=== PATIENT | female | born 1985 | race African-American/Black ===

== ENCOUNTER 2017-06-02 09:42 | Emergency (ER) | payer MEDICAID ==
[~2017-06-02] VITALS: Ht 160 cm; Wt 82.0 kg
[2017-06-02 09:44] VITALS: BP 121/74; PULSE 78; RESP 14; TEMP 98.3; O2SAT 98
--- NOTE | 2017-06-02 12:07 | PD ---
HPI . Headache Chief Complaint: Abnormal Results Time Seen by Provider: 12:03 Travel History International Travel<30 days: No Contact w/Intl Traveler<30days: No Traveled to known affect area: No History of Present Illness HPI This patient presents with a chief complaint of headache. Onset was a week ago. It is associated with nausea and double vision. She initially rated her pain 10/10. No modifiers. Getting progressively worse. PFSH Past Medical History Asthma: Yes Blood Disorders: No Anxiety: Yes (ANXIETY ATTACKS) Cancer: No Cardiovascular Problems: Yes High Cholesterol: Yes Diabetes: Yes Patient Takes Glucophage: Yes Diminished Hearing: No Endocrine: Yes (GESTATIONAL DIABETES) Genitourinary: No Headaches: Yes Immune Disorder: No Musculoskeletal: No Neurologic: Yes Psychiatric: Yes Reproductive: No Respiratory: Yes Immunizations Current: No ?: Not LMP: 05/19/17 : 5 Para: 4 Miscarriage: 1 : 0 Ovarian Cysts: Yes Tubal Ligation: Yes Past Surgical History Section: Yes (X 4) Gynecologic Surgery: Yes (C SECTIONS X4) Other Surgery: Yes (TUBAL) Social History Alcohol Use: No (OCCASIONALLY) Tobacco Use: No Substance Use: No Allergies-Medications (Allergen,Severity, Reaction): Coded Allergies: dinoprostone (Unverified Allergy, Severe, SHORT OF BREATH, 03/11/17) metoclopramide (Unverified Allergy, Severe, JITTERY, 03/11/17) penicillin G (Unverified Allergy, Severe, ITCHING, N/V, 03/11/17) oxycodone (Unverified Allergy, Unknown, rash, 03/11/17) promethazine (Unverified Allergy, Unknown, NAUSEA, 03/11/17) Uncoded Allergies: ENVIRONMENTAL (Allergy, Severe, 02/16/09) Reported Meds & Prescriptions Reported Meds & Active Scripts Active No Active Prescriptions or Reported Medications Review of Systems Except as stated in HPI: all other systems reviewed are Neg General / Constitutional: No: Fever, Chills Eyes: Positive: Diploplia HENT: Positive: Headaches Gastrointestinal: Positive: Nausea, Abdominal Pain (this is been chronic) Physical Exam Narrative GENERAL: Awake and alert. SKIN: Warm and dry with no rash or lesions. HEAD: Bitemporal tenderness. No occipital tenderness. EYES: Pupils are equal. Extraocular movements are intact. ENT: Mucous membranes are moist. NECK: Supple. RESPIRATORY: Nonlabored respirations. MUSCULOSKELETAL: Atraumatic. NEUROLOGICAL: A and O 3. No obvious cranial nerve deficits. Normal finger- nose-finger exam. 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 PSYCHIATRIC: Appropriate mood and affect. Data Data Last Documented VS Vital Signs Date Time Temp Pulse Resp B/P (MAP) Pulse Ox O2 Delivery O2 Flow Rate FiO2 06/02/17 11:27 16 Room Air 06/02/17 09:44 98.3 78 121/74 (90) [address] Brain W/O Iv Contrast(Rout) (06/02/17 12:03) Iv Access Insert/Monitor (06/02/17 12:03) Sodium Chloride 0.9% Flush (Ns Flush) (06/02/17 12:15) Diphenhydramine Inj (Benadryl Inj) (06/02/17 12:15) Haloperidol Inj (Haldol Inj) (06/02/17 12:15) MDM Medical Decision Making Medical Screen Exam Complete: Yes Emergency Medical Condition: Yes Differential Diagnosis Differential diagnosis of headache includes but is not limited to migraine, muscle contraction headache, brain tumor, brain bleed Narrative Course This patient presents with chief complaint of headache associated with diplopia and nausea. Her physical exam is unremarkable. She reports an adverse reaction to Phenergan. I will treat her headache with IM Haldol and IV Benadryl. CT of her head is pending. Last Impressions Head CT 06/02/17 1203 Signed Impressions: Service Date/Time: Friday, June 02, 2017 12:33 - CONCLUSION: Normal examination for a patient of this age. John Bain MD The history, exam, diagnostic testing, and current condition do not suggest any significant pathology to warrant further testing, continued ED treatment, admission, or surgical evaluation at this point. No EMC was found. The patient 's condition is stable and appropriate for discharge. Diagnosis Primary Impression: Headache Qualified Codes: G44.209 - Tension-type headache, unspecified, not intractable Patient Instructions: Acute Headache (DC), General Instructions Additional Instructions: Follow-up with your physician for ongoing symptoms. Med/Other Pt SpecificInfo: Prescription(s) given Scripts Upxzmlrhpf-Qnhubjocqojjr-Oterqdxj (Fioricet) 50-300-40 Mg Cap 1 CAP PO Q4H Y for HEADACHE, #12 CAP 0 Refills Prov: Latisha Harrison MD 06/02/17 Disposition: 01 DISCHARGE HOME Condition: Stable Latisha Harrison MD Jun 02, 2017 12:07
[2017-06-02] MEDS ORDERED: diphenhydrAMINE HCL 50 MG/ML VIAL IVP ONE (12:15)
[2017-06-02] MEDS ORDERED: HALOPERIDOL LACTATE 5 MG/ML AMP IM ONE (12:15)
[2017-06-02] MEDS ORDERED: SODIUM CHLORIDE 0.9% FLUSH 10 ML FLUSH IVF PRN (12:15)
--- NOTE | 2017-06-02 12:53 | RADRPT ---
EXAM DATE/TIME: 06/02/2017 12:33 [facility] COMPARISON: No previous studies available for comparison. INDICATIONS : Head pain with diziness. RADIATION DOSE: 44.09 CTDIvol (mGy) MEDICAL HISTORY : Diabetes,asthma SURGICAL HISTORY : Tubal ligation. section. ENCOUNTER: Initial ACUITY: 1 week PAIN SCALE: 10/10 LOCATION: cranial TECHNIQUE: Multiple contiguous axial images were obtained of the head. Using automated exposure control and adj ustment of the mA and/or kV according to patient size, radiation dose was kept as low as reasonably a chievable to obtain optimal diagnostic quality images. DICOM format image data is available electro nically for review and comparison. FINDINGS: CEREBRUM: The ventricles are normal for age. No evidence of midline shift, mass lesion, hemorrhage or acute in farction. No extra-axial fluid collections are seen. POSTERIOR FOSSA: The cerebellum and brainstem are intact. The 4th ventricle is midline. The cerebellopontine angle i s unremarkable. EXTRACRANIAL: The visualized portion of the orbits is intact. SKULL: The calvaria is intact. No evidence of skull fracture. CONCLUSION: Normal examination for a patient of this age. John Bain MD on June 02, 2017 at 12:51 Board Certified Radiologist. This report was verified electronically.
[2017-06-02] MEDS ORDERED: BUTA1CAP PO (13:14)
[2017-06-03] MEDS ORDERED: PRED20 PO (15:43)
== END 2017-06-02 14:07 | disposition home or self-care (01) ==
LOC: NEPD 09:42
DX: G44.209 Tension-type headache, unspecified, not intractable (principal)
CPT/HCPCS: 70450; 96372; 96374; 99285; J1200; J1630

== ENCOUNTER 2017-06-03 13:46 | Emergency (ER) | payer OTHER, MEDICAID ==
[~2017-06-03] VITALS: Ht 162.6 cm; Wt 82.0 kg
[~2017-06-03 13:46] MED LIST: BUTA1CAP PO
[2017-06-03 13:49] VITALS: BP 147/96; PULSE 90; RESP 22; TEMP 98.9; O2SAT 99
[2017-06-03 14:20] VITALS: BP 147/96; PULSE 77; RESP 18; O2SAT 98
[2017-06-03] MEDS ORDERED: SODIUM CHLOR 0.9% 1000 ML INJ 1,000 ML IV SCH (14:23)
--- NOTE | 2017-06-03 14:27 | PD ---
HPI Chief Complaint: Allergic/Adverse Reaction Time Seen by Provider: 14:15 Travel History International Travel<30 days: No Contact w/Intl Traveler<30days: No Traveled to known affect area: No History of Present Illness HPI This is a 32-year-old female who presents for evaluation. She reports that 2 hours ago she was driving when she felt the sensation that her tongue and throat were swelling. Symptoms are moderate, aggravated by swallowing or talking. She denies any swelling of the lips, she denies any rash. She reports that she did not eat anything unusual today and she has not been using any unusual medications or other substances. She was seen here yesterday for evaluation of a headache and at that time she received injections of Haldol and Benadryl. She has no other complaints at this time. PFSH Past Medical History Asthma: Yes Blood Disorders: No Anxiety: Yes (ANXIETY ATTACKS) Cancer: No Cardiovascular Problems: Yes High Cholesterol: Yes Diabetes: Yes Diminished Hearing: No Endocrine: Yes (GESTATIONAL DIABETES) Genitourinary: No Headaches: Yes Immune Disorder: No Musculoskeletal: No Neurologic: Yes Psychiatric: Yes Reproductive: No Respiratory: Yes Immunizations Current: No : 5 Para: 4 Miscarriage: 1 : 0 Ovarian Cysts: Yes Tubal Ligation: Yes Past Surgical History Section: Yes (X 4) Gynecologic Surgery: Yes (C SECTIONS X4) Other Surgery: Yes (TUBAL) Social History Alcohol Use: No (OCCASIONALLY) Tobacco Use: No Substance Use: No Allergies-Medications (Allergen,Severity, Reaction): Coded Allergies: dinoprostone (Unverified Allergy, Severe, SHORT OF BREATH, 03/11/17) metoclopramide (Unverified Allergy, Severe, JITTERY, 03/11/17) penicillin G (Unverified Allergy, Severe, ITCHING, N/V, 03/11/17) oxycodone (Unverified Allergy, Unknown, rash, 03/11/17) promethazine (Unverified Allergy, Unknown, NAUSEA, 03/11/17) Uncoded Allergies: ENVIRONMENTAL (Allergy, Severe, 02/16/09) Reported Meds & Prescriptions Reported Meds & Active Scripts Active Prednisone 20 Mg Tab 20 Mg PO BID 5 Days Fioricet (Ijknafvrkj-Fdmpqqiulzjbd-Ckqfjuem) 50-300-40 Mg Cap 1 Cap PO Q4H PRN Review of Systems Except as stated in HPI: all other systems reviewed are Neg Physical Exam Narrative GENERAL: Well-developed well-nourished female who appears anxious on initial examination. SKIN: Warm and dry. HEAD: Atraumatic. Normocephalic. EYES: Pupils equal and round. No scleral icterus. No injection or drainage. ENT: No nasal bleeding or discharge. Mucous membranes pink and moist. There is no obvious objective swelling of the lips, tongue, uvula. There is no stridor or drooling. Voice is not hoarse or muffled. NECK: Trachea midline. No JVD. CARDIOVASCULAR: Regular rate and rhythm. No murmur appreciated. RESPIRATORY: No accessory muscle use. Clear to auscultation. Breath sounds equal bilaterally. GASTROINTESTINAL: Abdomen soft, non-tender, nondistended. Hepatic and splenic margins not palpable. MUSCULOSKELETAL: No obvious deformities. No clubbing. No cyanosis. No edema. NEUROLOGICAL: Awake and alert. No obvious cranial nerve deficits. Motor grossly within normal limits. Normal speech. PSYCHIATRIC: Appropriate mood and affect; insight and judgment normal. Data Data Last Documented VS Vital Signs Date Time Temp Pulse Resp B/P (MAP) Pulse Ox O2 Delivery O2 Flow Rate FiO2 06/03/17 13:49 98.9 90 22 147/96 (113) 99 Room Air Orders Orders Ecg Monitoring (06/03/17 14:23) Iv Access Insert/Monitor (06/03/17 14:23) Oximetry (06/03/17 14:23) Diphenhydramine Inj (Benadryl Inj) (06/03/17 14:30) Methylprednisolone So Succ Inj (Solumedr (06/03/17 14:30) Famotidine Inj (Pepcid Inj) (06/03/17 14:30) Sodium Chlor 0.9% 1000 Ml Inj (Ns 1000 M (06/03/17 14:23) Sodium Chloride 0.9% Flush (Ns Flush) (06/03/17 14:30) Ed Discharge Order (06/03/17 15:43) MDM Medical Decision Making Medical Screen Exam Complete: Yes Emergency Medical Condition: Yes Medical Record Reviewed: Yes Differential Diagnosis Acute allergic reaction, angioedema, uvulitis, pharyngitis, abscess, anaphylaxis Narrative Course 32-year-old female presents with a sensation of tongue and throat swelling which started 2 hours ago. Objectively there is no obvious angioedema on initial examination and there is no evidence of airway compromise. The patient will be placed on ECG monitoring pulse oximetry. She will be given IV Solu- Medrol, H1 and H2 antihistamines. She will be monitored closely for any progression of her symptoms. 1545: The patient was reexamined and she feels all of her symptoms have resolved. The patient will be discharged with a short course of prednisone, recommended [id number] Benadryl use and return for any acutely new or worsening symptoms. She is agreeable with this plan. Diagnosis Primary Impression: Allergic reaction Qualified Codes: T78.40XA - Allergy, unspecified, initial encounter Additional Instructions: Medication as prescribed. Benadryl every 6 hours as needed. Return for any emergent medical conditions. Med/Other Pt SpecificInfo: Prescription(s) given Scripts Prednisone (Prednisone) 20 Mg Tab 20 MG PO BID for 5 Days, #10 TAB 0 Refills Prov: Eleazar Saldana MD 06/03/17 Disposition: 01 DISCHARGE HOME Condition: Stable Yves Salazar Jun 03, 2017 14:27
[2017-06-03] MEDS ORDERED: diphenhydrAMINE HCL 50 MG/ML VIAL IVP ONE (14:30)
[2017-06-03] MEDS ORDERED: methylPREDNISolone SOD SUCC 125 MG/2 ML VIAL IV PUSH ONE (14:30)
[2017-06-03] MEDS ORDERED: FAMOTIDINE 20 MG/2 ML VIAL IV PUSH ONE (14:30)
[2017-06-03] MEDS ORDERED: SODIUM CHLORIDE 0.9% FLUSH 10 ML FLUSH IV FLUSH PRN (14:30)
[2017-06-03] MEDS ORDERED: PRED20 PO (15:43)
[2017-06-03 16:00] VITALS: BP 117/62; PULSE 73; RESP 18; O2SAT 99
[2017-06-03 16:29] VITALS: BP 117/62
== END 2017-06-03 16:30 | disposition home or self-care (01) ==
LOC: NEPD 13:46
DX: T78.40XA Allergy, unspecified, initial encounter (principal); R51 Headache; J45.909 Unspecified asthma, uncomplicated; F41.9 Anxiety disorder, unspecified; E78.00 Pure hypercholesterolemia, unspecified; E11.9 Type 2 diabetes mellitus without complications; Z88.0 Allergy status to penicillin; Z88.5 Allergy status to narcotic agent; Z88.8 Allergy status to other drugs, medicaments and biological substances
CPT/HCPCS: 96361; 96374; 96375; 99284; J1200; J2930; J7030

== ENCOUNTER 2017-07-18 07:17 | Day surgery (SDC) | payer OTHER, MEDICAID ==
[~2017-07-18] VITALS: Ht 160 cm; Wt 80.0 kg
[~2017-07-18 07:17] MED LIST changes: +PRED20 PO
[2017-07-18 07:38] VITALS: BP 135/82; PULSE 79; RESP 20; TEMP 98.4; O2SAT 96
[2017-07-18] MEDS ORDERED: SODIUM CHLOR 0.9% 1000 ML INJ 1,000 ML IV SCH (08:00)
[2017-07-18] MEDS ORDERED: LORazepam 2 MG/ML VIAL ONE (08:01)
[2017-07-18] MEDS ORDERED: LORazepam 2 MG/ML VIAL IV ONE (08:15)
[2017-07-18 08:38] LABS: BICARBONATE 23.7 MEQ/L (21.0-32.0); POTASSIUM 3.9 MEQ/L (3.5-5.1)
[2017-07-18 09:20] VITALS: BP 125/64; PULSE 70; RESP 18; TEMP 98.1; O2SAT 97
--- NOTE | 2017-07-18 09:23 | PD.RAD ---
Post Procedure Progress Note Pre Procedure Diagnosis: (1) Pseudotumor cerebri syndrome Post Procedure Diagnosis: (1) Pseudotumor cerebri syndrome (2) Pseudotumor cerebri Procedure Date: Jul 18, 2017 Supervising Radiologist: Rolando Fuentes Proceduralist/Assist: Julia Jackson, RT(R)(), Tawnya Floyd RT(R) Anesthesia: Local Plan of Activity Patient to Unit: ROPU Patient Condition: Good See PACS Report for procedural detail/treatment Spinal Procedure Lumbar Puncture L3-L4 Fluid Removal (CCs): 21 Fluid Description: Clear Puncture Time: 09:07 Findings: OP: 32 cmH2O CP: 9 cm H2O Rolando Fuentes MD Jul 18, 2017 09:23
[2017-07-18 09:30] VITALS: BP 130/72; PULSE 82; RESP 20; TEMP 98.6; O2SAT 98
[2017-07-18 10:46] LABS: GROSS BLOOD TUBE #1 TRACE (0); GROSS BLOOD TUBE #2 0 (0); SUPERNATE COLOR TUBE #1 CLEAR (CLEAR); SUPERNATE COLOR TUBE #2 CLEAR (CLEAR); SUPERNATE COLOR TUBE #3 CLEAR (CLEAR); VOLUME TUBE # 1 5.5 ML
[2017-07-18 10:47] LABS: CSF LYMPHOCYTES 100 %; CSF NEUTROPHILS 0 %; GROSS BLOOD TUBE #3 0 (0); VOLUME TUBE # 4 5.5 ML; WBC TUBE #4 8 /MM3 (0-10)
[2017-07-18 10:48] LABS: GROSS BLOOD TUBE #4 0 (0); SUPERNATE COLOR TUBE #4 CLEAR (CLEAR)
[2017-07-18 11:00] VITALS: BP 131/68; PULSE 79; RESP 20; O2SAT 98
--- NOTE | 2017-07-18 13:23 | RADRPT ---
EXAM DATE/TIME: 07/18/2017 08:38 [facility] COMPARISON: No previous studies available for comparison. INDICATIONS : Patient with a history of pseudotumor cerebri. MEDICAL HISTORY : Asthma Headaches Hypercholesterolemia HTN Ovarian cyst Diabetes Anxiety SURGICAL HISTORY : Tubal ligation ENCOUNTER: Initial ACUITY: 1 month PAIN SCORE: 6/10 LOCATION: Headache LUMBAR PUNCTURE TIME: 0907 hours FLUORO TIME: 1.6 minutes 1 ACCESS LEVEL: L3-4 OPENING PRESSURE: 32 cm of water CLOSING PRESSURE: 9 cm of water FLUID: 21 cc of clear CSF was collected and sent to the laboratory for analysis. SEDATION: 1.) 2 mg lorazepam (Ativan) IV PROCEDURE : 1. Fluoroscopic guided lumbar puncture. 2. Recording of opening pressure. The risks, benefits and alternatives to the procedure were explained and verbal and written consent w as obtained. The site was prepped in sterile fashion. Full sterile technique was used, including ca p, mask, sterile gloves and gown and a large sterile sheet. Hand hygiene and 2% chlorhexidine and/or betadine/alcohol prep was utilized per protocol for cutaneous antisepsis. The skin and subcutaneous tissues were infiltrated with local anesthetic solution. With fluoroscopic guidance the lumbar thecal sac was punctured at the above level described above and the opening pressure was recorded. The above described fluid was removed without difficulty. The patient tolerated the procedure well and there were no complications. CONCLUSION: Uncomplicated fluoroscopically guided lumbar puncture with pressures as above. Rolando Fuentes MD on July 18, 2017 at 13:20 Board Certified Radiologist. This report was verified electronically.
== END 2017-07-18 11:20 | disposition home or self-care (01) ==
LOC: HROP 07:17 → HRIP 07:21 → HROP 11:20
PROVIDERS: ATTEND Psychiatry & Neurology Neurology
DX: G93.2 Benign intracranial hypertension (principal); I10 Essential (primary) hypertension; E11.9 Type 2 diabetes mellitus without complications; E78.00 Pure hypercholesterolemia, unspecified; F41.9 Anxiety disorder, unspecified; J45.909 Unspecified asthma, uncomplicated; N83.209 Unspecified ovarian cyst, unspecified side
CPT/HCPCS: 62270; 77003; 80048; 82945; 84157; 89051; J2060

== ENCOUNTER 2017-11-17 05:24 | Emergency (ER) | payer MEDICAID, OTHER ==
[2017-11-17 05:27] VITALS: BP 126/82; PULSE 87; RESP 17; TEMP 98.4; O2SAT 100
[2017-11-17] MEDS ORDERED: ONDANSETRON HCL 4 MG/2 ML VIAL IV ONE (05:45)
[2017-11-17] MEDS ORDERED: MORPHINE SULFATE 2 MG/ML SYRINGE IV PUSH ONE (05:45)
[2017-11-17] MEDS ORDERED: SODIUM CHLOR 0.9% 1000 ML INJ 1,000 ML IV ONE (05:45)
--- NOTE | 2017-11-17 05:50 | PD ---
HPI Chief Complaint: Abdominal Pain Time Seen by Provider: 05:34 Travel History International Travel<30 days: No Contact w/Intl Traveler<30days: No Traveled to known affect area: No History of Present Illness HPI The patient is a 32 year old female who presents to the [facility] emergency department with a history of abdominal pain that began yesterday. The patient reports that the pain is a pressure sensation in the suprapubic and right lower quadrant of the abdomen. She reports that her last menstrual cycle began on October 27 and was normal for her. She denies having any vaginal discharge. She reports having nausea without any vomiting. She denies having any diarrhea. Her last bowel movement was last night. She denies having any blood in her stool or black or tarry stools. She denies having any dysuria, urinary frequency, or urinary urgency. She reports having a loss of appetite. She denies having any recent fevers. The patient reports that her only abdominal surgeries have been for prior C-sections and a bilateral tubal ligation. On review of systems otherwise, the patient denies having any cough, congestion, neck pain, chest pain, shortness of breath, or neurologic symptoms. [facility] Past Medical History Narrative Medical The patient's past medical history is significant for idiopathic intracranial hypertension, history of anxiety disorder, history of gestational diabetes. The patient reports that her primary care physician is Dr. Ro Asthma: Yes Blood Disorders: No Anxiety: Yes (ANXIETY ATTACKS) Cancer: No Cardiovascular Problems: Yes High Cholesterol: Yes Diabetes: Yes (gestational) Patient Takes Glucophage: No Diminished Hearing: No Endocrine: Yes (GESTATIONAL DIABETES) Gastrointestinal Disorders: No Genitourinary: No Headaches: Yes Hypertension: Yes (WITH ) Immune Disorder: No Implanted Vascular Access Dvce: No Musculoskeletal: No Neurologic: Yes Psychiatric: Yes Reproductive: No Respiratory: Yes Immunizations Current: No ?: Not : 5 Para: 4 Miscarriage: 1 : 0 Ovarian Cysts: Yes Tubal Ligation: Yes Past Surgical History Narrative Surgical The patient's past surgical history is significant for 4 prior C-sections, bilateral tubal ligation Section: Yes (X 4) Gynecologic Surgery: Yes (C SECTIONS X4) Hysterectomy: Yes Other Surgery: Yes (TUBAL) Social History Alcohol Use: Yes (Occasional use) Tobacco Use: No Substance Use: No Allergies-Medications (Allergen,Severity, Reaction): Coded Allergies: dinoprostone (Unverified Allergy, Severe, SHORT OF BREATH, 11/17/17) metoclopramide (Unverified Allergy, Severe, JITTERY, 11/17/17) penicillin G (Unverified Allergy, Severe, ITCHING, N/V, 11/17/17) oxycodone (Unverified Allergy, Unknown, rash, 11/17/17) promethazine (Unverified Allergy, Unknown, NAUSEA, 11/17/17) Uncoded Allergies: ENVIRONMENTAL (Allergy, Severe, 02/16/09) Reported Meds & Prescriptions Reported Meds & Active Scripts Active No Active Prescriptions or Reported Medications Narrative Medication The patient reports that she is on a low-dose diuretic daily for idiopathic intracranial hypertension Review of Systems Except as stated in HPI: all other systems reviewed are Neg General / Constitutional: No: Fever Eyes: No: Visual changes HENT: No: Headaches Cardiovascular: No: Chest Pain or Discomfort Respiratory: No: Shortness of Breath Gastrointestinal: Positive: Nausea, Abdominal Pain, Loss of Appetite, No: Vomiting, Diarrhea, Hematochezia, Changes in Bowel Habits, Indigestion Genitourinary: No: Dysuria Musculoskeletal: No: Pain Skin: No Rash Neurologic: No: Weakness, Focal Abnormalities, Change in Mentation, Slurred Speech, Sensory Disturbance Psychiatric: No: Depression Endocrine: No: Polydipsia Hematologic/Lymphatic: No: Easy Bruising Physical Exam Narrative General: The patient is a well-developed well-nourished female in no acute distress. Head and Neck exam: Head is normocephalic atraumatic. Eyes: EOMI, pupils are equal round and reactive to light. Nose: Midline septum with pink mucous membranes Mouth: Dentition unremarkable. Moist mucus membranes. Posterior oropharynx is not erythematous. No tonsillar hypertrophy. Uvula midline. Airway patent. Neck: No palpable lymphadenopathy. No nuchal rigidity. No thyromegaly. Cardiovascular: Regular rate and rhythm without murmurs, gallops, or rubs. No pulse deficit to the extremities on simultaneous auscultation and palpation of her radial artery. Lungs: Clear to auscultation bilaterally. No wheezes, rhonchi, or rales. Abdomen: Soft, with tenderness on palpation of the midepigastric area and right lower quadrant of the abdomen. Negative Anderson sign. Normal bowel sounds are audible no guarding, rebound, or rigidity. The patient has tenderness on palpation of McBurney's point. Negative Rovsing sign. Extremities: No clubbing, cyanosis, or edema. No calf tenderness on palpation. Back: No costovertebral angle tenderness to palpation. Neurologic Exam: Grossly nonfocal. Skin Exam: No rash noted. Intact skin that is warm and dry. Data Data Last Documented VS Vital Signs Date Time Temp Pulse Resp B/P (MAP) Pulse Ox O2 Delivery O2 Flow Rate FiO2 11/17/17 05:27 98.4 87 17 126/82 (97) 100 Orders Orders Complete Blood Count With Diff (11/17/17 05:43) Comprehensive Metabolic Panel (11/17/17 05:43) C-Reactive Protein (Crp) (11/17/17 05:43) Lipase (11/17/17 05:43) Urinalysis - C+S If Indicated (11/17/17 05:43) Magnesium (Mg) (11/17/17 05:43) Ct Abd/Pel W Iv Contrast(Rout) (11/17/17 05:43) Iv Access Insert/Monitor (11/17/17 05:43) Ecg Monitoring (11/17/17 05:43) Oximetry (11/17/17 05:43) Ed Urine Pregnancytest Poc (11/17/17 05:43) Sodium Chlor 0.9% 1000 Ml Inj (Ns 1000 M (11/17/17 05:45) Ondansetron Inj (Zofran Inj) (11/17/17 05:45) Morphine Inj (Morphine Inj) (11/17/17 05:45) Iohexol 350 Inj (Omnipaque 350 Inj) (11/17/17 07:00) Labs Laboratory Tests Test 11/17/17 06:00 White Blood Count 6.7 TH/MM3 Red Blood Count 4.25 MIL/MM3 Hemoglobin 10.8 GM/DL Hematocrit 33.1 % Mean Corpuscular Volume 77.9 FL Mean Corpuscular Hemoglobin 25.4 PG Mean Corpuscular Hemoglobin Concent 32.6 % Red Cell Distribution Width 14.7 % Platelet Count 350 TH/MM3 Mean Platelet Volume 8.8 FL Neutrophils (%) (Auto) 48.7 % Lymphocytes (%) (Auto) 36.9 % Monocytes (%) (Auto) 9.8 % Eosinophils (%) (Auto) 3.7 % Basophils (%) (Auto) 0.9 % Neutrophils # (Auto) 3.2 TH/MM3 Lymphocytes # (Auto) 2.5 TH/MM3 Monocytes # (Auto) 0.7 TH/MM3 Eosinophils # (Auto) 0.2 TH/MM3 Basophils # (Auto) 0.1 TH/MM3 CBC Comment DIFF FINAL Differential Comment Urine Color YELLOW Urine Turbidity HAZY Urine pH 5.5 Urine Specific [place] 1.020 Urine Protein NEG mg/dL Urine Glucose (UA) NEG mg/dL Urine Ketones NEG mg/dL Urine Occult Blood NEG Urine Nitrite NEG Urine Bilirubin NEG Urine Urobilinogen LESS THAN 2.0 MG/DL Urine Leukocyte Esterase NEG Urine RBC 1 /hpf Urine WBC 1 /hpf Urine Squamous Epithelial Cells 7 /hpf Urine Hyaline Casts 2 /lpf Urine Mucus FEW /lpf Microscopic Urinalysis Comment CULT NOT INDICATED Blood Urea Nitrogen 9 MG/DL Creatinine 0.68 MG/DL Random Glucose 100 MG/DL Total Protein 8.3 GM/DL Albumin 3.8 GM/DL Calcium Level 8.7 MG/DL Magnesium Level 1.9 MG/DL Alkaline Phosphatase 66 U/L Aspartate Amino Transf (AST/SGOT) 11 U/L Alanine Aminotransferase (ALT/SGPT) 16 U/L Total Bilirubin 0.3 MG/DL Sodium Level 139 MEQ/L Potassium Level 3.8 MEQ/L Chloride Level 107 MEQ/L Carbon Dioxide Level 22.8 MEQ/L Anion Gap 9 MEQ/L Estimat Glomerular Filtration Rate 121 ML/MIN C-Reactive Protein LESS THAN 0.29 MG/DL Lipase 137 U/L MDM Medical Decision Making Medical Screen Exam Complete: Yes Emergency Medical Condition: Yes Medical Record Reviewed: Yes Differential Diagnosis Appendicitis, versus ovarian cyst, versus mesenteric adenitis, versus kidney stone, versus cystitis Narrative Course During the course of the patient's emergency department visit, the patient's history, examination, and differential diagnosis were reviewed with the patient. The patient was placed on a child monitor with oximetry and frequent blood pressure monitoring. The patient had IV access obtained and blood work sent for analysis. CT scan of the abdomen and pelvis was ordered. The patient was initially provided normal saline 1 L IV fluid bolus, morphine for pain, Zofran for nausea. The patient's laboratory studies were reviewed and remarkable for a white count of 6.7, hemoglobin 10.8, platelets 350 with 9.8 monocytes. CMP is remarkable for an AST of 11, total protein 8.3, C-reactive protein is less than 0.29 decreasing likelihood of an infectious process or appendicitis. Urinalysis is unremarkable per Radiology studies were reviewed and remarkable for CT scan of the abdomen and pelvis shows no evidence of appendicitis, no acute abnormality to explain the patient's right lower quadrant abdominal pain. The patient incidentally is noted to have what appears to be a fibroid 15 mm lobulated area at the midline at the fundus, 17 mm rim-enhancing left corpus luteal cyst. The patient will be given a copy of her CT scan findings. The patient will be given the name of the cyber security architect operations research manager for follow-up, Dr. Manzanares. The patient is resting comfortably and feels better, is alert and in no distress. The patient's results and examination findings were discussed with the patient. The repeat examination is unremarkable and benign. The history, exam, diagnostic testing, and current condition do not suggest any significant pathology to warrant further testing, continued ED treatment, admission, or surgical evaluation at this point. The vital signs have been stable. The patient does not have uncontrollable pain, intractable vomiting, or other significant symptoms. The patient's condition is stable and appropriate for discharge. The patient will pursue further outpatient evaluation with a primary care physician or other designated or consulting physician as indicated in the discharge instructions. The patient expressed understanding and was agreeable with this plan. 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
[2017-11-17 06:24] LABS: AUTOMATED NEUTROPHIL # 3.2 TH/MM3 (1.8-7.7); BASOPHIL # 0.1 TH/MM3 (0-0.2); BASOPHIL % 0.9 % (0.0-2.0); EOSINOPHIL # 0.2 TH/MM3 (0-0.4); EOSINOPHIL % 3.7 % (0.0-4.0); HEMATOCRIT 33.1 % (35.0-46.0); HEMOGLOBIN 10.8 GM/DL (11.6-15.3); LYMPH % 36.9 % (9.0-44.0); LYMPHOCYTE # 2.5 TH/MM3 (1.0-4.8); MEAN CELL VOLUME 77.9 FL (80.0-100.0); MEAN CORPUSCULAR HEMOGLOBIN 25.4 PG (27.0-34.0); MEAN CORPUSCULAR HGB CONC 32.6 % (32.0-36.0); MEAN PLATELET VOLUME 8.8 FL (7.0-11.0); MONO % 9.8 % (0.0-8.0); MONOCYTE # 0.7 TH/MM3 (0-0.9); NEUT % 48.7 % (16.0-70.0); PLATELET COUNT 350 TH/MM3 (150-450); RED BLOOD COUNT 4.25 MIL/MM3 (4.00-5.30); RED CELL DISTRIBUTION WIDTH 14.7 % (11.6-17.2); WHITE BLOOD COUNT 6.7 TH/MM3 (4.0-11.0)
[2017-11-17 06:33] LABS: BILIRUBIN, URINE NEG (NEG); BLOOD, URINE NEG (NEG); GLUCOSE,URINE NEG (NEG); HYALINE CAST, URINE 2 /lpf (RARE); KETONE, URINE NEG (NEG); MUCUS URINE FEW /lpf (OCC); NITRITE,URINE NEG (NEG); PH, URINE 5.5 (5.0-8.5); SQUAMOUS EPITHELIAL CELL URINE 7 /hpf (0-5); URINE COLOR YELLOW (YELLW/STRAW); URINE LEUKOCYTE ESTERASE NEG (NEG)
[2017-11-17 06:37] LABS: ALBUMIN 3.8 GM/DL (3.4-5.0); ALT (GPT) 16 U/L (10-53); AST (GOT) 11 U/L (15-37); BICARBONATE 22.8 MEQ/L (21.0-32.0); BLOOD UREA NITROGEN 9 MG/DL (7-18); C-REACTIVE PROTEIN LESS THAN 0.29 MG/DL (0.00-0.30); CALCIUM 8.7 MG/DL (8.5-10.1); CHLORIDE 107 MEQ/L (98-107); CREATININE 0.68 MG/DL (0.50-1.00); GLOMERULAR FILTRATION RATE 121 ML/MIN (>89); GLUCOSE,RANDOM 100 MG/DL (74-106); MAGNESIUM 1.9 MG/DL (1.5-2.5); SODIUM (NA) 139 MEQ/L (136-145)
[2017-11-17 06:40] LABS: ALKALINE PHOSPHATASE 66 U/L (45-117); TOTAL BILIRUBIN ADULT 0.3 MG/DL (0.2-1.0); TOTAL PROTEIN 8.3 GM/DL (6.4-8.2)
[2017-11-17] MEDS ORDERED: IOHEXOL 350 MG/ML 10 ML VIAL (for RAD DIAG) IVCONTRAST ONE (07:00)
--- NOTE | 2017-11-17 07:18 | RADRPT ---
EXAM DATE/TIME: 11/17/2017 06:55 [facility] COMPARISON: No previous studies available for comparison. INDICATIONS : Right lower quadrant pain for 2 days IV CONTRAST: 97 cc Omnipaque 350 (iohexol) IV ORAL CONTRAST: Prescribed oral contrast ingested. RADIATION DOSE: 12.12 CTDIvol (mGy) MEDICAL HISTORY : Cardiovascular disease. Hypertension. SURGICAL HISTORY : Hysterectomy. ENCOUNTER: Initial ACUITY: 2 days PAIN SCALE: 8/10 LOCATION: Abdomen TECHNIQUE: Volumetric scanning of the abdomen and pelvis was performed. Using automated exposure control and ad justment of the mA and/or kV according to patient size, radiation dose was kept as low as reasonably achievable to obtain optimal diagnostic quality images. DICOM format image data is available electro nically for review and comparison. FINDINGS: LOWER LUNGS: The visualized lower lungs are clear. LIVER: Homogeneous density without lesion. There is no dilation of the biliary tree. No calcified gallston es. SPLEEN: Normal size without lesion. PANCREAS: Within normal limits. KIDNEYS: Normal in size and shape. There is no mass, stone or hydronephrosis. ADRENAL GLANDS: Within normal limits. VASCULAR: There is no aortic aneurysm. BOWEL/MESENTERY: The stomach, small bowel, and colon demonstrate no acute abnormality. There is no free intraperitone al air or fluid. Appendix and terminal ileum have a normal appearance. ABDOMINAL WALL: There is scar along the inferior aspect of the anterior abdominal wall. RETROPERITONEUM: There is no lymphadenopathy. BLADDER: No wall thickening or mass. REPRODUCTIVE: No acute abnormality. There is a 17 mm rim-enhancing left corpus luteal cyst. There is 15 mm lobulate d area at the midline fundus. INGUINAL: There is no lymphadenopathy or hernia. MUSCULOSKELETAL: Within normal limits for patient age. CONCLUSION: 1. No acute abnormality is identified to explain the right lower quadrant pain. The appendix is katey l. 2. There is a 15 mm lobulated area at the fundus of the uterus which may represent a fibroid. Turner Naranjo MD on November 17, 2017 at 7:12 Board Certified Radiologist. This report was verified electronically.
[2017-11-17] MEDS ORDERED: NAPR500 PO (07:24)
[2017-11-17] MEDS ORDERED: ZOFR4TAB3 SL (07:24)
== END 2017-11-17 07:46 | disposition home or self-care (01) ==
LOC: NEPC 05:24
DX: D25.9 Leiomyoma of uterus, unspecified (principal); N83.202 Unspecified ovarian cyst, left side; J45.909 Unspecified asthma, uncomplicated; F41.9 Anxiety disorder, unspecified; E78.00 Pure hypercholesterolemia, unspecified; Z79.899 Other long term (current) drug therapy
CPT/HCPCS: 74177; 80053; 81001; 83690; 83735; 84703; 85025; 86140; 96361; 96374; 96375; 99284; J2270; J2405; J7030; Q9967